=== PATIENT | female | born 1955 | race Caucasian/White ===

== ENCOUNTER → 2016-11-04 | Outpatient (CLI) | payer OTHER ==
--- NOTE | 2016-11-04 16:41 | MA ---
Bilateral Digital Screening Mammography Clinical History: 60-year-old female presenting for routine annual mammographic screening. Technique: Digital CC and MLO views of each breast are compared with previous studies dated November 10, 2015, October 30, 2015, October 25, 2014, November 05, 2013, October 19, 2013, September 08, 2012, and September 05, 2011. Additionally, the exam is CAD checked. Breast Density: Type B. Scattered fibroglandular densities. Computer-Aided Detection Evaluation: Reviewed. Findings: There is a mild residual fibroglandular pattern, which is stable. Slight parenchymal asym metry near the left pectoralis muscle on the MLO view is reassuringly unchanged from prior remote exa ms. There has been interim involution of previously seen nodules (consistent with cysts) in the cent ral left breast. A benign rounded calcification in the outer right breast is unchanged. There are n o new suspicious clustered microcalcifications. Impression: Benign mammography. BI-RADS CATEGORY 2. Recommendation: Routine annual mammographic screening. [facility] will send a result letter to the patient. Negative mammography should not preclude additional work up of a clinically suspicious finding. The patient's information is entered into a reminder system with a target due date for her next mammo gram. E:amm
== END ==
LOC: FIMAGING 15:25
DX: Z12.31 Encounter for screening mammogram for malignant neoplasm of breast (principal)
CPT/HCPCS: G0202

== ENCOUNTER → 2017-11-07 | Outpatient (CLI) | payer OTHER | LOC: FIMAGING 14:13 | DX: Z12.31 Encounter for screening mammogram for malignant neoplasm of breast (principal) ==

== ENCOUNTER → 2017-12-17 | Outpatient (CLI) | payer OTHER | LOC: FIMAGING 12:03 | DX: R92.8 Other abnormal and inconclusive findings on diagnostic imaging of breast (principal) ==

== ENCOUNTER → 2018-01-07 | Outpatient (CLI) | payer OTHER ==
[~2018-01-07] MED LIST: BUPIVACAINE 0.5% 10 ML SDV ONE; LIDOCAINE 1% 300 MG/30 ML SDV ONE; THROMBIN (BOVINE) 5,000 UNIT VIAL TP ONE
== END ==
LOC: FIMAGING 07:35
DX: N63.10 Unspecified lump in the right breast, unspecified quadrant (principal)

== ENCOUNTER → 2018-06-25 | Outpatient (CLI) | payer OTHER | LOC: FIMAGING 14:25 | DX: D24.1 Benign neoplasm of right breast (principal) ==

== ENCOUNTER → 2018-11-18 | Outpatient (CLI) | payer OTHER | LOC: FIMAGING 09:36 | DX: Z12.31 Encounter for screening mammogram for malignant neoplasm of breast (principal) ==

== ENCOUNTER → 2018-11-27 | Outpatient (CLI) | payer OTHER | LOC: FIMAGING 11:21 | DX: R92.8 Other abnormal and inconclusive findings on diagnostic imaging of breast (principal) ==